=== PATIENT | male | born 1950 | race Two or more races ===

== ENCOUNTER 2017-08-25 07:54 | Emergency (ER) | payer OTHER ==
--- NOTE | 2017-08-25 08:38 | EDPHY ---
HPI/HX/ROS/PE/MDM Narrative: CHIEF COMPLAINT: Left abdominal burning sensation. HISTORY OF PRESENT ILLNESS: This patient is a 67 year old male complaining of a burning sensation in his left abdominal region. He is visiting from [place] for work. Last night, he had stomach pain. This has been recurrent in the past and usually triggers a burning sensation on his upper left side. His symptoms today are similar to prior episodes, but more severe and with a longer duration of symptoms. He was unable to sleep last night. This morning, he noted lack of appetite and jittery legs. He denies chest pain or heaviness, shortness of breath, vomiting, or back pain. The patient follows up regularly with cardiology and has had negative workups in the past. He denies any known heart issues. He spoke with deployment manager this morning who recommended EKG and blood work. The patient has also been evaluated by gastroenterology and had negative endoscopies. He denies history of shingles but has not had a shingles vaccine. No fever, chills, chest pain, shortness of breath, palpitations, vomiting, diarrhea, urinary complaints, headache, lightheadedness. REVIEW OF SYSTEMS: Aside from elements discussed in the HPI, a comprehensive 10-point review of systems was reviewed and is negative. PAST MEDICAL HISTORY: Denies. Occasional ASA 81mg at night. 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 Coworker at bedside. VITAL SIGNS: Reviewed by me GENERAL: Well-developed, well-nourished, resting comfortably in no respiratory distress. HEENT: Atraumatic. Eyes: No icterus, no injection. Mouth: moist mucous membranes. No erythema or lesions. Neck: supple with no adenopathy. LUNGS: Clear to auscultation bilaterally, no wheezes, rhonchi or rales. CARDIAC: Regular rate and rhythm, no rubs, murmurs or gallops. ABDOMEN: Soft, nontender, nondistended, bowel sounds normal. Patient indicates the location of his burning sensation in the left chest wall and LUQ. BACK: No CVA tenderness. EXTREMITIES: No trauma. No edema. Range of motion is normal throughout. NEURO: Alert and oriented, grossly nonfocal. SKIN: Warm and dry, no rash. PSYCHIATRIC: Normal mentation, no agitation. Portions of this note were transcribed by a medical physics teacher. I personally performed a history, physical exam, medical decision making, and confirmed accuracy of information the transcribed note. ED Course: 67 y/o male presents with burning lower left chest and upper left abdominal discomfort onset yesterday evening. Exam unremarkable. He is well-appearing. Plan for EKG, labs including CBC, chemistries, troponin, lipase. 08:38 Spoke with the patient's deployment manager in [place]. The patient had a negative heart catheterization 6-7 years ago as well as normal stress tests in the past 2 years. He has had no multiple episodes of the discomfort which he is describing today, with no etiology identified. Patient's deployment manager recommends the patient would be safe to be discharged home and to continue his conference if he has a negative workup in the emergency department. 12-LEAD EKG: Please see the full report in [facility]. My interpretation: Normal sinus rhythm Troponin negative. BGL elevated at 202. Labs otherwise unremarkable. 09:22 Reassessed patient. Discussed results. Plan to discharge home in good condition. He will follow up with his deployment manager upon his return to [place]. Return precautions discussed. He is comfortable with this plan. MDM: After history and physical examination, the differential for chest pain was considered, including but not limited to, myocardial ischemia, acute coronary syndrome, pulmonary embolus, gastric causes, shingles, chest wall pain, pleural inflammation and pulmonary infectious causes. - Data Points Laboratory Results: Laboratory Results 08/25/17 08:24 08/25/17 08:24 Medications Given: Discontinued Medications Aspirin (Aspirin) 324 mg PO EDNOW ONE Stop: 08/25/17 08:43 Last Admin: 08/25/17 08:50 Dose: 324 mg General Time Seen by Provider: 08/25/17 08:26 Initial Vital Signs: Initial Vital Signs Temperature (C) 36.6 C 08/25/17 07:59 Heart Rate 98 08/25/17 07:59 Respiratory Rate 17 08/25/17 07:59 Blood Pressure 157/92 H 08/25/17 07:59 O2 Sat (%) 94 08/25/17 07:59 O2 Delivery Mode Room Air Allergies/Adverse Reactions: No Known Allergies Allergy (Unverified 08/25/17 07:58) Home Medications: Medication Instructions Recorded NK [No Known Home Meds] 08/25/17 Departure - Departure Disposition: Home, Routine, Self-Care Clinical Impression: Burning chest pain Condition: Good Instructions: Chest Pain (ED), Abdominal Pain (ED) Additional Instructions: 1. Follow up with your deployment manager and crystal finisher when you return to [place] for further evaluation. 2. Take Tylenol or ibuprofen as directed on the packaging as needed for pain. 3. Return to the emergency department for fever, chest pain, shortness of breath , increasing pain, or other worsening of condition or further concerns. Referrals: SAV[facility] TORRES [Other] - As per Instructions Report Scribed for: Carly Jackson Report Scribed by: Sury Mehta Date of Report: 08/25/17 Time of Report: 09:20
[2017-08-25] MEDS ORDERED: ASPIRIN 81 MG CHEWABLE TAB PO ONE (08:42)
[2017-08-25 08:48] LABS: PLATELET COUNT 206 10^3/uL (150-400)
--- NOTE | 2017-08-25 08:59 | CPEKG ---
Heart Rate: 90 RR Interval: 667 P-R Interval: 164 QRSD Interval: 88 QT Interval: 348 QTC Interval: 426 P Ingram: 29 QRS Ingram: 8 T Wave Ingram: 14 EKG Severity - NORMAL ECG - EKG Impression: SINUS RHYTHM Electronically Signed By: Juanita Van 26-Aug-2017 17:00:48
[2017-08-25 10:19] VITALS: BP 136/88
== END 2017-08-25 10:18 | disposition home or self-care (01) ==
DX: R07.9 Chest pain, unspecified (principal)